=== PATIENT | female | born 1965 | race Caucasian/White ===

== ENCOUNTER 2017-11-13 15:02 | Emergency (ER) | payer OTHER ==
[2017-11-13 15:24] VITALS: BP 112/77; PULSE 70; RESP 18; TEMP 97.9
--- NOTE | 2017-11-13 15:36 | ED ---
General Adult HPI - General Chief complaint: Needlestick/Exposure Stated complaint: [facility] - needle stick Time Seen by Provider: 11/13/17 15:19 Source: patient, RN notes reviewed Mode of arrival: ambulatory Limitations: no limitations - History of Present Illness Initial comments: This is a 52-year-old female who presents to the emergency department with chief complaint of work-related needlestick. 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 Patient has been on vancomycin IV for the past few days. Patient states that while performing venipuncture today she was unable to retract the safety back over the needle. She states that she placed it at the bedside and when she went to grab the remaining tube from the Vacutainer, she accidentally touched her right fourth finger against the needle. She states that when she removed her gloves she was bleeding. At this time, there is no bleeding and no evidence of wounds. Patient denies any concerns for HIV or hepatitis from the source patient. She states that she is fully up-to-date with her vaccinations, including all hepatitis series. She does state that she believes she is not up- to-date with tetanus. Denies recent fevers or chills, chest pain or shortness of breath, abdominal pain, nausea or vomiting. - Related Data Home Medications Medication Instructions Recorded Confirmed Multivitamin,Therapeutic [Thera] 1 tab PO DAILY 11/13/17 11/13/17 Allergies Allergy/AdvReac Type Severity Reaction Status Date / Time Penicillins Allergy Unknown Verified 11/13/17 15:24 Review of Systems ROS Statement: Those systems with pertinent positive or pertinent negative responses have been documented in the HPI. ROS Other: All systems not noted in ROS Statement are negative. Past Medical History Past Medical History: No Reported History History of Any Multi-Drug Resistant Organisms: None Reported Additional Past Surgical History / Comment(s): D & C Past Psychological History: No Psychological Hx Reported Smoking Status: Never smoker Past Alcohol Use History: Occasional Past Drug Use History: None Reported General Exam - General Exam Comments Initial Comments: General: Awake and alert, well-developed; in no apparent distress. HEENT: Head atraumatic, normocephalic. Pupils are equal, round and reactive to light. Extraocular movements intact. Oropharynx moist without erythema or exudate. Neck: Supple. Normal ROM. Cardiovascular: Regular rate and rhythm. No murmurs, rubs or gallops. Chest symmetrical. Respiratory: Lungs clear to auscultation bilaterally. No wheezes, rales or rhonchi. Normal respiratory effort with no use of accessory muscles. Musculoskeletal: Normal ROM, no tenderness bilateral upper and lower extremities. Ambulating normally. Skin: [place], warm and dry without rashes or lesions. No open wounds or active bleeding to the distal lateral aspect right 4th finger. Neurological: Alert and oriented x3. CN II-XII grossly intact. Speech is fluent and answers are appropriate. No focal neuro deficits. Psychiatric: Normal mood and affect. No overt signs of depression or anxiety noted. Limitations: no limitations Course Vital Signs 11/13/17 15:21 Temperature 97.9 F Pulse Rate 70 Respiratory 18 Rate Blood Pressure 112/77 Medical Decision Making - Medical Decision Making This is a 52-year-old female who presents to the emergency department with chief complaint of needle stick. Patient reports accidental needle stick to the right fourth finger. No concerns for hepatitis or HIV. Appropriate testing and consents were obtained. Patient refuses prophylactic therapy. Vitals are stable and she is in no acute distress. She will be discharged home at this time. All questions answered. Disposition Clinical Impression: Needle stick injury of finger Disposition: HOME SELF-CARE Condition: Good Instructions: Needle Stick Injuries (ED) Additional Instructions: Please follow up with primary care provider within 1-2 days. Return to emergency department if symptoms should worsen or any concerns arise. Is patient prescribed a controlled substance at d/c from ED?: No Referrals: Emanuel Heard MD [Primary Care Provider] - 1-2 days Time of Disposition: 15:38
[2017-11-14 04:05] LABS: HIV 1 AB Non-Reactive (Non-Reactive); HIV AB P24 Non-Reactive (Non-Reactive); HIV P24 AG Non-Reactive (Non-Reactive)
[2017-11-14 04:39] LABS: Hepatitis C IgG Antibody Non-Reactive (Non-Reactive)
== END 2017-11-13 16:10 | disposition home or self-care (01) ==
LOC: EC 15:02
DX: S69.91XA Unspecified injury of right wrist, hand and finger(s), initial encounter (principal); Z88.0 Allergy status to penicillin; W46.0XXA Contact with hypodermic needle, initial encounter; Y93.89 Activity, other specified; Y92.009 Unspecified place in unspecified non-institutional (private) residence as the place of occurrence of the external cause; Y99.0 Civilian activity done for income or pay
CPT/HCPCS: 36415; 82075; 86706; 86803; 87390; 99283